=== PATIENT | female | born 1965 | race Caucasian/White ===

== ENCOUNTER 2018-05-03 18:04 | Emergency (ER) | payer BC, OTHER ==
[~2018-05-03] VITALS: Ht 162.6 cm; Wt 59.9 kg
[2018-05-03 18:15] VITALS: BP 139/81
--- NOTE | 2018-05-03 18:16 | NUR ---
ARRIVAL PATIENT ARRIVED TO [facility], C/O OF LEFT INDEX FINGER LACERATION FROM A SEWING MACHINE TODAY AT HOME, CAME TO THE ED FOR FURTHER EVAL.
[2018-05-03] MEDS ORDERED: LIDOCAINE 1% VIAL ONE (18:25)
--- NOTE | 2018-05-03 18:39 | ER.PDOC ---
General Chief Complaint: Extremities Stated Complaint: FINGER LAC Time seen by MD: 18:22 Source: patient Exam Limitations: no limitations History of Present Illness Allergies: Coded Allergies: No Known Allergies (Unverified , 05/03/18) Home Meds No Active Prescriptions or Reported Meds Past Medical History Medical History: no pertinent history Surgical History: , other Social History Smoking: cigarettes Alcohol Use: occassionally Drug Use: none Review of Systems All Other Systems: Reviewed and Negative Physical Exam General Appearance: Alert, No Apparent Distress Hand: see diagram 1 - lac Neuro: sensation nml, motor nml Vascular: no vascular compromise Tendons: tendon function nml Forearm/Elbow/Arm: uninjured above wrist Skin: warm/dry Head/ENT: nml inspection, pharynx nml Neck/Back: nml inspection, non-tender Resp/CVS: no resp distress, lungs clear, heart sounds nml, reg. rate & rhythm Abdomen: non-tender, no organomegaly ED LACERATION WOUND REPAIR Wound Length (cm): 2 Wound cleaned: betadine Distal NVT: neuro intact Anesthesia type: digital block Anesthesia: 1% Lidocaine Wound Repaired With: sutures Suture Size/Type: 5:0 Suture Style: interupted Departure Time of Disposition: 19:00 Disposition: 01 HOME, SELF-CARE Impression: Primary Impression: Finger laceration Condition: Improved Referrals: Tara TRAVIS (PCP) PRIMARY CARE PROVIDER Scripts No Active Prescriptions or Reported Meds Duration or Time Spent with Pa: 30 min EMILY DONOHUE MD May 03, 2018 18:39
[2018-05-03] MEDS ORDERED: TRIPLE ANTIBIOTIC OINTMENT TP ONE (18:50)
[2018-05-03] MEDS ORDERED: BOOSTRIX TDAP IM ONE ×2 (18:50→19:00)
[2018-05-03 19:35] VITALS: BP 139/81
== END 2018-05-03 19:28 | disposition home or self-care (01) ==
LOC: ER 18:04
DX: S61.211A Laceration without foreign body of left index finger without damage to nail, initial encounter (principal); F17.210 Nicotine dependence, cigarettes, uncomplicated; Z98.890 Other specified postprocedural states; W31.89XA Contact with other specified machinery, initial encounter; Y93.D2 Activity, sewing; Y92.89 Other specified places as the place of occurrence of the external cause; Y99.8 Other external cause status
CPT/HCPCS: 12001; 90471; 90715; 99283; J2001

== ENCOUNTER 2021-03-26 20:54 | Emergency (ER) | payer OTHER ==
[~2021-03-26] VITALS: Ht 162.6 cm; Wt 70.8 kg
[2021-03-26 21:04] VITALS: BP 127/85
--- NOTE | 2021-03-26 21:25 | ER.PDOC ---
General Chief Complaint: Skin Rash/Abscess Stated Complaint: RASH Time seen by MD: 21:05 Source: patient Exam Limitations: no limitations History of Present Illness Initial Comments Patient present to the ER with the CC of having a rash that started on the 22 of March after been mowing the yard at home, somewhat similar episode in the past but less severe. Patient denies fever or chills, No swollen lymph nodes, Patient denies Chest pain or cough, No respiratory distress. Patient Denies Nausea, Vomit, diarrhea or constipation, Patient denies urinary symptoms, No DELONG back pain or Neck pain/stiffness. Patient does not look toxic or in any acute distress. Timing/Duration: 1 week Location: RUE, LUE Quality: itchy, painful, burning Identified Cause: yes Exposure: other (sun exposure on 22 march after mowing the lawn) Prior symptoms/Treatment: Similar symptoms previous Allergies: Coded Allergies: No Known Allergies (Unverified , 05/03/18) Home Meds No Active Prescriptions or Reported Meds Past Medical History Medical History: no pertinent history Surgical History: no surgical history Social History Alcohol Use: occassionally Drug Use: none Constitutional: no symptoms reported Respiratory: no symptoms reported Cardiovascular: no symptoms reported Gastrointestinal: no symptoms reported Musculoskeletal: no symptoms reported Skin: see HPI Psychiatric/Neurological: no symptoms reported Hematologic/Lymphatic: no symptoms reported Physical Exam General Appearance: alert, no distress, mild distress Skin: with erythema, skin rash, plaque, other (Macular erythematous scaly lesion involving hand foreartm and antecubital area with active ozzing of serous fluids and skin fisure. ) Location: RUE, LUE Character: asymmetric, macular, patchy, vesicular, erythematous With: tenderness, swelling, scaling, weeping Extremities: nml ROM Neck: trachea midline, no swelling Respiratory: no resp. distress, breath sounds nml CVS: reg. rate & rhythm, heart sounds nml Abdomen: non-tender NEURO/PSYCH: oriented x 3 Results/Orders Results/Orders Vital Signs Date Time Temp Pulse Resp B/P (MAP) Pulse Ox O2 Delivery O2 Flow Rate FiO2 03/26/21 21:04 98.4 109 16 99 03/26/21 21:04 98.4 109 16 ER DEPART Departure Time of Disposition: 21:20 Disposition: 01 HOME / SELF CARE / HOMELESS Impression: Primary Impression: Phototoxic dermatitis Condition: Improved Referrals: Tara TRAVIS (PCP) PRIMARY CARE PROVIDER Additional Instructions: Comprehensive ER evaluation was performed of the patient's symptoms. The parents were given the opportunity to have all of them questions addressed. Medication side effects and proper use of medications were discussed in detail. Parents were involved in the medical decision-making. The parents voiced understanding and agreement with the plan of care. Follow up with your primary care physician for further evaluation and treatment. Take your medication as prescribed. If you have prescription medications please take your home medication as prescribed. Drink plenty of fluids. Avoid fast food and process food. Use OTC medication as need it. If worsening of symptoms or new symptoms start please visit your doctor or return to the ER. The patient is stable, nontoxic at the moment of the DC. Symptoms and signs for early ER return were discussed. Alternant Tylenol and Motrin can be used Q 3 hrs. one at the time if need it. Please read your DC instruction and information. Scripts No Active Prescriptions or Reported Meds Comments Please follow up with your PCP and discuss the need for a comb fixer referral Duration or Time Spent with Pa: 10 Return to Work/School Can a patient return to work?: Yes Can a patient return to school: Yes TAMARA BARRIOS MD Mar 26, 2021 21:25
== END 2021-03-26 21:53 | disposition home or self-care (01) ==
LOC: ER 20:54
DX: L30.9 Dermatitis, unspecified (principal)
CPT/HCPCS: 99283